=== PATIENT | female | born 1970 | race Caucasian/White ===

== ENCOUNTER 2022-04-17 20:36 | Emergency (ER) | payer OTHER ==
--- OUTSIDE RECORDS SUMMARY | 2022-04-17 20:44 | XMS REPORT | Continuity of Care Document ---
:1970 Author Organization [facility] t Address [address] [place] [address] [address]. [address]. [address] [place] [address] Care Team Providers Name Role Phone Benjy Attending Clinician Unavailable Matti Parikh Attending Clinician Unavailable Matti Parikh Attending Clinician [phone] MICK LATHAM Attending Clinician Unavailable Nelson Benjamin Attending Clinician Unavailable Benjy Admitting Clinician Unavailable Matti Parikh Admitting Clinician Unavailable MICK LATHAM Admitting Clinician Unavailable Physician, No Primary or Family Admitting Clinician Unavaila ble Payers Payer Name Policy Type Policy Number Effective Date Expiration Date Janet MORALEZ (POS) [id number] 2002 00:00:00 Problems This patient has no known problems. Allergies, Adverse Reactions, Alerts Allergy Allergy Status Severity Reaction(s) Onset Inactive Treating Comm ents Source Name Type Date Date Clinician Sulfa DA Active ME SWELLING, [facility] (Sulfona RASH, 03-03 [place] [facility] ITCHING. 00:00: d Antibiot 00 Medical ics) Center sulfamet DA Active ME SWELLING, [facility] hoxazole RASH, 03-03 [place] [facility]CH[facility]. 00:00: d 00 Medical Center trimetho DA Active ME SWELLING, [facility] prim RASH, 03-03 [place] [facility]CH[facility]. 00:00: d 00 Medical Center Sulfa DA Active ME [facility] (Sulfona 03-03 [place] mide 00:00: Orthope Antibiot 00 dic ics) Hospita l sulfamet DA Active ME 2020- [facility] hoxazole 03-03 00:00: Orthope 00 dic Hospita l trimetho DA Active ME 2020- [facility] prim 03-03 00:00: Orthope 00 dic Hospita l Sulfa DA Active ME SWELLING, 2017- [facility] (Sulfona RASH, 12-10 [place] [facility] ITCHING. 00:00: Orthope Antibiot 00 dic ics) Hospita l neomycin DA Active ME SWELLING, 2017- [facility] RASH, 12-10 [place] ITCHING. 00:00: Orthope 00 dic Hospita l bacitrac DA Active ME SWELLING, 2017- [facility] in RASH, 12-10 [place] ITCHING. 00:00: Orthope 00 dic Hospita l sulfamet DA Active ME SWELLING, [facility] hoxazole RASH, 12-10 [place] ITCHING. 00:00: Orthope 00 dic Hospita l trimetho DA Active ME SWELLING, [facility] prim RASH, 12-10 [place] ITCHING. 00:00: Orthope 00 dic Hospita l polymyxi DA Active ME SWELLING, [facility] n B RASH, 12-10 [place] ITCHING. 00:00: Orthope 00 dic Hospita l Sulfa DA Active ME 2017-0 [facility] (Sulfona 12-10 [place] mide 00:00: Orthope Antibiot 00 dic ics) Hospita l neomycin DA Active ME 2018-0 [facility] 12-10 [place] 00:00: Orthope 00 dic Hospita l bacitrac DA Active ME 2017-0 [facility] in 12-10 [place] 00:00: Orthope 00 dic Hospita l sulfamet DA Active ME 2017-0 [facility] hoxazole 12-10 [place] 00:00: Orthope 00 dic Hospita l trimetho DA Active ME 2017-0 [facility] prim 12-10 [place] 00:00: Orthope 00 dic Hospita l polymyxi DA Active ME 2017-0 [facility] n B 12-10 00:00: Orthope 00 dic Hospita l Medications This patient has no known medications. Procedures This patient has no known procedures. Encounters Start End Encounter Admission Attending Care Care Encounter Source Date/Time Date/Time Type Type Clinicians Facility Department ID 2022-01-17 2022-01-17 Outpatient FOG_Brown_B AOSM AOSM [address] 09:47:00 09:47:00 Amada [id number] [facility] 2022-01-17 2022-01-17 Outpatient AVILA Baez RADI [id number] [id number] [facility] 09:14:00 09:14:00 Matti Duncan [place] [facility] 2022-01-17 2022-01-17 Outpatient Kati AOSM AOSM [id number] 00:00:00 00:00:00 Matti Osborn [id number] 2022-01-16 2022-01-16 Outpatient FOG_Brown_B AOSM AOSM [address] 04:59:00 04:59:00 Amada [id number] [facility] 2022-01-04 2022-01-04 Outpatient FOG_Brown_B AOSM AOSM [address] 10:55:00 10:55:00 Amada [id number] [facility] 2021-12-29 2021-12-29 Outpatient YUSUF RASHEED KATHI LA00 [id number] [facility] 08:00:00 08:00:00 MICK 91 [facility] 2021-03-03 2021-03-03 Outpatient AVILA Hernandez [id number] [facility] 11:01:00 11:01:00 Nelson 34 [place] [facility] 2020-11-24 2020-11-24 Outpatient YUSUF RASHEED KATHI LA00 [id number] [facility] 12:00:00 12:00:00 MICK 02 [facility] Results Test Description Test Time Test Comments Results Result Sourc e Comments - MRI LOW EXT W/O 2022-01-17 CONT LT 12:14:00 [facility] 1970 Sex: F Patient Name: ASHLEIGH GALLAGHER Unit No: [id number] EXAMS: CPT CODE: [id number] MRI LOW EXT W/[place] [address] TECHNIQUE: Multiplanar multisequence images of the left foot were obtained without the administration of intravenous contrast. COMPARISON STUDY: None available. FINDINGS: No acute fracture. Moderate third TMT joint degenerative changes are present with scattered subchondral edema. The remaining midfoot joints are within normal limits. Deformity of the first metatarsal is likely postoperative. Mild first MTP joint degenerative changes are present with a small joint effusion. Musculature is normal in size and signal intensity. IMPRESSION: 1. Moderate third TMT joint degenerative changes. 2. No acute findings. at 1214 Reported and signed by: Tae Oquendo M.D. CC: Matti Parikh MD Technologist: Ingrid Calvo(R) Transcribed D/ (6976) DemarcusGriffin [facility] NAME: ASHLEIGH GALLAGHER [address] [facility] PHYS: Matti Mora MD : 1970 AGE: 51 SEX: F [place], [place] [address] LOC: Y.MRI PHONE #: [phone] EXAM DATE: 01/17/2022 STATUS: REG CLI FAX #: [phone] RAD #: D/C DT PAGE 1 Signed Report Patient Name: ASHLEIGH GALLAGHER Unit No: [id number] EXAMS: CPT CODE: [id number] MRI LOW EXT W/[place] [address] <Continued> Orig Print D/T: S: 01/17/2022 (9974) [facility] NAME: ASHLEIGH GALLAGHER [address] [facility] PHYS: Matti Mora MD : 1970 AGE: 51 SEX: F [place], [place] [address] LOC: Y.MRI PHONE #: [phone] EXAM DATE: 01/17/2022 STATUS: REG CLI FAX #: [phone] RAD #: D/C DT PAGE 2 Signed Report - MRI UP [facility] 2021-03-03 W/CONT LT 13:22:00 [facility] : 1970 Sex: F Patient Name: ASHLEIGH GALLAGHER Unit No: [id number] EXAMS: CPT CODE: [id number] MRI UP [facility] W/[place] [address] LEFT SHOULDER ARTHROGRAM AND MARCAINE INJECTION DIAGNOSIS: No evidence for rotator cuff tear. COMMENT: COMPARISON: No prior exams available. After informed consent was obtained a single-contrast arthrogram was performed with equal parts Isovue-300 and dilute gadolinium . 0.1 minutes of fluoroscopy was utilized. The normal recesses were opacified. No leakage of contrast into the rotator cuff was seen on an AP radiograph. Subsequently 2 mL of 0.75% Marcaine was injected into the joint. No immediate complications were encountered. MRI OF THE LEFT SHOULDER POST ARTHROGRAPHY DIAGNOSIS: 1. SLAP tear of the labrum without evidence for biceps tendon tear or subluxation. The subscapularis tendon is within normal limits in appearance. 2. Supraspinatus tendinosis without evidence for tear, retraction or muscular atrophy. COMMENT: COMPARISON: No prior exams available. Scans were performed in the paracoronal, parasagittal and axial planes utilizing T1-weighting with and without fat saturation, spin density with fat saturation and T2-weighted with and without fat saturation. The infraspinatus tendon is within normal limits in appearance. The supraspinatus, biceps and subscapularis tendons are as noted. The acromion is type II with AC joint degenerative change. The superior labrum is torn. The remainder the labrum appears intact. The joint is distended with contrast. A small amount of unopacified bursal fluid is present. at 1322 Reported and signed by: Jarocho Lawson MD CC: Nelson Benjamin MD Technologist: Dariela Miller, RT(R) Transcribed D/ (7492) ReinaL [facility] NAME: ASHLEIGH GALLAGHER [address] [facility] PHYS: Nelson Ansari : 1970 AGE: 50 SEX: F [place] [address] LOC: NessaRAD PHONE #: [phone] EXAM DATE: 03/03/2021 STATUS: REG CLI FAX #: [phone] RAD #: D/C DT PAGE 1 Signed Report Patient Name: ASHLEIGH GALLAGHER Unit No: [id number] EXAMS: CPT CODE: [id number] MRI UP JNT W/[place] [address] <Continued> Orig Print D/T: S: 03/03/2021 (1325) [facility] NAME: ASHLEIGH GALLAGHER [address] [facility] PHYS: Nelson Ansari Larry : 1970 AGE: 50 SEX: F [place] [address] LOC: Y.RAD PHONE #: [phone] EXAM DATE: 03/03/2021 STATUS: REG CLI FAX #: [phone] RAD #: D/C DT PAGE 2 Signed Report - XR ARTHROGRAM 2021-03-03 SHLDR LT 13:22:00 [facility] : 1970 Sex: F Patient Name: ASHLEIGH GALLAGHER Unit No: [id number] EXAMS: CPT CODE: [id number] [place] [address] LEFT SHOULDER ARTHROGRAM AND MARCAINE INJECTION DIAGNOSIS: No evidence for rotator cuff tear. COMMENT: COMPARISON: No prior exams available. After informed consent was obtained a single-contrast arthrogram was performed with equal parts Isovue-300 and dilute gadolinium . 0.1 minutes of fluoroscopy was utilized. The normal recesses were opacified. No leakage of contrast into the rotator cuff was seen on an AP radiograph. Subsequently 2 mL of 0.75% Marcaine was injected into the joint. No immediate complications were encountered. MRI OF THE LEFT SHOULDER POST ARTHROGRAPHY DIAGNOSIS: 1. SLAP tear of the labrum without evidence for biceps tendon tear or subluxation. The subscapularis tendon is within normal limits in appearance. 2. Supraspinatus tendinosis without evidence for tear, retraction or muscular atrophy. COMMENT: COMPARISON: No prior exams available. Scans were performed in the paracoronal, parasagittal and axial planes utilizing T1-weighting with and without fat saturation, spin density with fat saturation and T2-weighted with and without fat saturation. The infraspinatus tendon is within normal limits in appearance. The supraspinatus, biceps and subscapularis tendons are as noted. The acromion is type II with AC joint degenerative change. The superior labrum is torn. The remainder the labrum appears intact. The joint is distended with contrast. A small amount of unopacified bursal fluid is present. at 1322 Reported and signed by: Jarocho Lawson MD CC: [place] Benjamin MD Technologist: ROSLYN HARTMAN, RT(R) Transcribed D/ (4202) Seth [facility] NAME: ASHLEIGH GALLAGHER [address] [facility] PHYS: MAURO BenjaminNelson Juarez : 1970 AGE: 50 SEX: F [place] [address] LOC: Y.RAD PHONE #: [phone] EXAM DATE: 03/03/2021 STATUS: REG CLI FAX #: [phone] RAD #: D/C DT PAGE 1 Signed Report Patient Name: ASHLEIGH GALLAGHER Unit No: [id number] EXAMS: CPT CODE: [id number] [place] [address] <Continued> Orig Print D/T: S: 03/03/2021 (0920) [facility] NAME: ASHLEIGH GALLAGHER [address] [facility] PHYS: MAURO BenjaminNelson Juarez : 1970 AGE: 50 SEX: F [place] [address] LOC: Y.RAD PHONE #: [phone] EXAM DATE: 03/03/2021 STATUS: REG CLI FAX #: [phone] RAD #: D/C DT PAGE 2 Signed Report
[2022-04-17 21:18] LABS: Arterial Blood Carboxyhemoglob 1.2 % (0-1.5); Blood Gas Oxyhemoglobin 96.4 % (94-97); Blood O2 Saturation 98.7 % (92-98.5)
[2022-04-17 21:33] LABS: Absolute Lymphocytes (CBC) 1.2 K/uL (0.7-4.9); Hematocrit 38.8 % (36.0-45.0); Lymphocytes % 14.2 % (15.3-44.8); MCV 89.3 fL (80-100); MPV 6.8 fL (7.6-11.3); RBC Red Blood Cell Count 4.35 M/uL (3.86-4.86)
[2022-04-17 21:46] LABS: Magnesium 1.9 mg/dL (1.8-2.4); Potassium 3.6 mmol/L (3.5-5.1); Troponin High Sensitivity 44.1 pg/mL (<58.9)
--- NOTE | 2022-04-17 22:15 | RAD REPORT ---
EXAM DESCRIPTION: Maxx Single View04/17/2022 9:39 pm CLINICAL HISTORY: sob COMPARISON: 2017 FINDINGS: The lungs appear clear of acute infiltrate. The heart is normal size IMPRESSION: No acute abnormalities displayed
--- NOTE | 2022-04-17 22:15 | RAD REPORT ---
EXAM DESCRIPTION: CT - Chest For Pe Angio - 04/17/2022 10:04 pm CLINICAL HISTORY: Chest pain COMPARISON: None. TECHNIQUE: Dynamically enhanced axial 3 mm thick images of the chest were obtained during administra tion of <100> mL Isovue 370 IV contrast. Coronal and oblique reconstruction images were generated and reviewed. Exam utilizes a protocol for optimal evaluation of pulmonary arterial tree. Maximum intensity projections 3D imaging was utilized All CT scans are performed using dose optimization technique as appropriate and may include automated exposure control or mA/KV adjustment according to patient size. FINDINGS: A pulmonary embolus is not seen. A thoracic aortic aneurysm is not noted. A pleural effusion is not seen. A pericardial effusion is not seen. A lung consolidation is not present. IMPRESSION: Negative for a pulmonary embolism.
[2022-04-17 22:30] LABS: Urine Blood Negative (Negative); Urine Glucose Negative (Negative); Urine Protein Negative (Negative); Urine Specific Gravity 1.015 (1.005-1.030)
[2022-04-17 22:45] LABS: Urine Bacteria <20 /HPF (<20); Urine RBC <5 /HPF (None Seen)
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
[2022-04-18 00:46] VITALS: TEMP 97.8
[2022-04-18 00:49] VITALS: BP 127/85; O2SAT 100
--- NOTE | 2022-04-19 16:18 | EKG ---
Test Date: 2022-04-17 Test Time: 21:07:16 Medical Clinic Manager: MEASUREMENT RESULTS: Intervals: Rate: 89 FL: 146 QRSD: 84 QT: 368 QTc: 447 [place]: P: 73 FL: 146 QRS: 74 T: 66 INTERPRETIVE STATEMENTS: Normal sinus rhythm Normal ECG No previous ECG available for comparison Electronically Signed On 04-19-22 16:15:47 CDT by Andrea Alcazar
--- NOTE | 2022-04-19 16:18 | EKG ---
Test Date: 2022-04-17 Test Time: 22:53:06 Live Study Manager: JOSÉ MIGUEL MEASUREMENT RESULTS: Intervals: Rate: 70 IA: 162 QRSD: 84 QT: 406 QTc: 438 [place]: P: 61 IA: 162 QRS: 68 T: 64 INTERPRETIVE STATEMENTS: Normal sinus rhythm Normal ECG Compared to ECG 04/17/2022 21:07:16 No significant changes Electronically Signed On 04-19-22 16:15:45 CDT by Andrea Alcazar
== END 2022-04-17 23:34 | disposition home or self-care (01) ==
LOC: ER 20:36
DX: R06.00 Dyspnea, unspecified (principal); Z20.822 Contact with and (suspected) exposure to COVID-19; Z88.2 Allergy status to sulfonamides; Z88.3 Allergy status to other anti-infective agents
CPT/HCPCS: 93005 ×2; 85025; 80048; 36415; 83735; 84484 ×2; 83880; 87804 ×2; 71275; 71045; 82805; 99283; U0003; Q9967; 81003; 81015